=== PATIENT | male | born 1970 | race Caucasian/White ===

== ENCOUNTER 2021-12-08 10:42 | Outpatient (CLI) | payer OTHER, SELFPAY ==
[2021-12-08 21:38] LABS: Chloride* 104 mmol/L (96-114)
[2021-12-08 21:39] LABS: Potassium* 4.2 mmol/L (3.6-5.1); Sodium* 141 mmol/L (135-149)
[2021-12-08 21:41] LABS: Bilirubin Total* 0.4 mg/dL (0.1-1.5); Carbon Dioxide* 27 mmol/L (20-32); Creatinine* 0.9 mg/dL (0.5-1.5); Estimated Glomerular Filt Rate 102 ml/min
[2021-12-08 21:42] LABS: Alanine Aminotransferase* 46 U/L (4-50); Alkaline Phosphatase* 90 U/L (40-150); Aspartate Amino Transferase* 33 U/L (12-35); Blood Urea Nitrogen* 17 mg/dL (7-30); Calcium* 9.7 mg/dL (8.4-10.6); Glucose* 85 mg/dL (60-115); Total Protein* 7.6 g/dL (6.0-8.3)
== END 2021-12-08 10:43 | disposition home or self-care (01) ==
LOC: FRMREF 15:47
PROVIDERS: PCP Family Medicine; Visit Provider Dermatology
DX: Z79.899 Other long term (current) drug therapy (principal)
CPT/HCPCS: 80053

== ENCOUNTER 2022-03-10 15:15 | Outpatient (CLI) | payer OTHER, SELFPAY ==
[2022-03-10 21:30] LABS: Albumin* 4.8 g/dL (3.3-5.0); Chloride* 104 mmol/L (96-114)
[2022-03-10 21:31] LABS: Potassium* 4.7 mmol/L (3.6-5.1); Sodium* 139 mmol/L (135-149)
[2022-03-10 21:33] LABS: Aspartate Amino Transferase* 47 U/L (12-35); Bilirubin Total* 0.3 mg/dL (0.1-1.5); Carbon Dioxide* 28 mmol/L (20-32); Creatinine* 1.1 mg/dL (0.5-1.5); Estimated Glomerular Filt Rate 80 ml/min
[2022-03-10 21:34] LABS: Alanine Aminotransferase* 79 U/L (4-50); Alkaline Phosphatase* 81 U/L (40-150); Blood Urea Nitrogen* 18 mg/dL (7-30); Calcium* 9.2 mg/dL (8.4-10.6); Glucose* 88 mg/dL (60-115); Total Protein* 7.1 g/dL (6.0-8.3)
== END 2022-03-10 15:16 | disposition home or self-care (01) ==
PROVIDERS: PCP Family Medicine; Visit Provider Dermatology
DX: Z79.631 Long term (current) use of antimetabolite agent (principal)
CPT/HCPCS: 80053

== ENCOUNTER 2022-06-30 15:38 | Outpatient (CLI) | payer OTHER, SELFPAY | END 2022-06-30 15:39 | disposition home or self-care (01) | LOC: NFLDREF 07-08 11:40 | PROVIDERS: PCP Family Medicine; Referring Provider Family Medicine; Visit Provider Dermatology | DX: L30.8 Other specified dermatitis (principal); Z79.631 Long term (current) use of antimetabolite agent | CPT/HCPCS: 80053 ==

== ENCOUNTER 2024-02-22 17:55 | Emergency (ER) | payer OTHER, SELFPAY ==
[2024-02-22 17:58] VITALS: BP 163/92; PULSE 82; RESP 20; TEMP 36.6; O2SAT 97; BMI 21.9
--- NOTE | 2024-02-22 18:18 | ED_ITS ---
HPI - General Adult General Chief complaint: Shortness of Breath/Dyspnea Stated complaint: pneumonia Time Seen by Provider: 02/22/24 17:56 History of Present Illness HPI narrative: Patient has history of pneumonia and feels like it is coming back over the past couple days. Feels SOB, a little wheezy, and fatigued. States he has had a cough for a couple days. 53-year-old man presenting to the emergency department with concern of pneumonia. Underlying history of dermatitis and eczema and history of methotrexate. Been feeling particularly exertionally fatigued. Generally short of breath and wheezy. Does not endorse history of COPD or reactive airway. Does smoke 3 swishher sweets a day inhaling more than I should?. Feels like he gets a yearly pneumonia. Did not occur last year he reflects. No chest pain. No fever. Related Data Home Medications ?Medication ?Instructions ?Recorded ?Confirmed clobetasol 0.05 % topical cream topical 02/22/24 folic acid 1 mg tablet 1 mg PO DAILY 02/22/24 02/22/24 losartan 25 mg tablet 12.5 mg PO DAILY 02/22/24 02/22/24 Previous Rx's ?Medication ?Instructions ?Recorded methotrexate sodium 2.5 mg tablet 15 mg (6 x 2.5 mg) PO QWEEK #72 07/08/22 tabs Allergies Allergy/AdvReac Type Severity Reaction Status Date / Time No Known Drug Allergies Allergy Verified 07/08/22 14:26 Review of Systems Status of ROS: Reports: 6 or more systems reviewed and unremarkable except as noted in History and below [facility] Medical History Methotrexate, retirement, current use ?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 NAD. Gravelly voice. Oropharynx hyperemic. Neck supple without supraclavicular crepitus. Lungs with diffuse end-expiratory wheezing trace crepitus. Good air movement though. Heart in regular rate and rhythm. Dist ant. Is well-perfused peripherally. No edema. Const: Vital Signs, click to edit/add: Vital Signs - 24 hr 02/22/24 17:58 Temperature 97.9 F Pulse Rate [Pulse Oximeter] 82 Respiratory Rate 20 Blood Pressure [Ri ght Upper Arm] 163/92 H Pulse Oximetry 97 Oxygen Delivery Me thod Room Air Documenting provider has reviewed patient's vital signs: yes Course Vital Signs Vital signs: Initial Vital Signs Temperature 97.9 F 02/22/24 17:58 Temperature Source Temporal Artery Scan 02/22/24 17:58 Pulse Rate 82 02/22/24 17:58 Pulse Rhythm Regular 02/22/24 17:58 Respiratory Rate 20 02/22/24 17:58 Blood Pressure 163/92 H 02/22/24 17:58 Blood Pressure Mean 115 H 02/22/24 17:58 Blood Pressure Position Sitting 02/22/24 17:58 Pulse Oximetry 97 02/22/24 17:58 Oxygen Delivery Method Room Air 02/22/24 17:58 Vital Signs Temperature 97.9 F 02/22/24 17:58 Pulse Rate 82 02/22/24 17:58 Respiratory Rate 20 02/22/24 17:58 Blood Pressure 163/92 H 02/22/24 17:58 Pulse Oximetry 97 02/22/24 17:58 Oxygen Delivery Method Room Air 02/22/24 17:58 Temperature 97.9 F 02/22/24 17:58 Pulse Rate 82 02/22/24 17:58 Respiratory Rate 20 02/22/24 17:58 Blood Pressure 163/92 H 02/22/24 17:58 Pulse Oximetry 97 02/22/24 17:58 Oxygen Delivery Method Room Air 02/22/24 17:58 Medical Decision Making MDM Narrative Medical decision making narrative: Particularly in the setting of immunosuppression would 1 a say whether not there is pneumonia. Would check also for COVID influenza a considering community prevalence. Chest x-ray pending. Did discuss potential benefit of nebulization. Does not normally use an inhaler. At rest however is with minimal symptoms and vitals are WNL so decided to defer the nebulization. Chest x-ray reviewed by me seems to have some thickening of tissue at the right lower lung base. This is similar to prior. I do not clearly see any infiltrate otherwise. Looks to have a stable left lower lung nodule. Discussed all findings with Jaydon Delio. Radiology over-read below Indication: Cough, exertional dyspnea and wheeze Comparison: Two-view chest June 06, 2020 Technique: PA and lateral views of the chest Findings: There is hyperinflation and chronic interstitial change with demonstration of marked right lower lobe pleural thickening with parenchymal scar seen in the right lung base. There is mild interstitial prominence without dense consolidation, effusion or pneumothorax. The cardiomediastinal silhouette is within normal limits. The bony thorax is grossly intact. Impression: Hyperinflation and chronic interstitial change with developing right basilar pleural thickening and tenting of the right hemidiaphragm. I think more is experiencing some COPD exacerbation/bronchitis. He is concerned though about coming into the weekend and about having antibiotic available if not improving. See patient discharge plan for further discussion Medical Records Medical records reviewed: Yes I reviewed the patient's medical records Lab Data Lab results reviewed: Yes I reviewed the patient's lab results Labs: Lab Results 02/22/24 Range/Units 18:30 SARS-CoV-2 (PCR) Negative SARS-CoV-2 (Negative) Influenza Type A (PCR) Negative PCR FLU A (Negative) Influenza Type B (PCR) Negative PCR FLU B (Negative) RSV (PCR) Negative PCR RSV (Negative) Discharge Plan Discharge Clinical Impression: Bronchitis, Nicotine dependence Instructions: Acute Bronchitis (ED) Additional Instructions: ED appear to have some inflammation in your chest at a minimum. This could be multifactorial brought on by smoking or viral infection. Concerns also related due to methotrexate use that would make you more susceptible to infections. Prescribing prednisone and albuterol from [facility]. Also doxycycline as an antibiotic that you can start in a couple of days if you are not turning the corner. Do what you can to quit smoking. I would follow-up in primary care for re-evaluation of your lungs -- need pulmonary function testing and then possibly an inhaled steroid or similar long- term. Prescriptions: No Action methotrexate sodium 2.5 mg tablet 15 mg PO QWEEK Qty: 72 0RF Rx Instructions: Take 4 pills on Tuesday and 4 pills on Tuesday clobetasol 0.05 % cream topical losartan 25 mg tablet 12.5 mg PO DAILY folic acid 1 mg tablet 1 mg PO DAILY Follow Up/Referrals: Simon Whitfield MD [Primary Care Provider] - Stand Alone Forms: [employer] Info Instructions
--- NOTE | 2024-02-22 18:26 | CRLHL7_ITS ---
For Patients: As a result of the Century Cures Act, medical imaging exams and procedure reports are released immediately into your electronic medical record. You may view this report before your referring provider. If you have questions, please contact your health care provider. Indication: Cough, exertional dyspnea and wheeze Comparison: Two-view chest June 06, 2020 Technique: PA and lateral views of the chest Findings: There is hyperinflation and chronic interstitial change with demonstration of marked right lower lobe pleural thickening with parenchymal scar seen in the right lung base. There is mild interstitial prominence without dense consolidation, effusion or pneumothorax. The cardiomediastinal silhouette is within normal limits. The bony thorax is grossly intact. Impression: Hyperinflation and chronic interstitial change with developing right basilar pleural thickening and tenting of the right hemidiaphragm. Dictated by Desean Wlels MD @ 02/22/2024 6:48:41 PM (Electronically Signed)
[2024-02-22 19:14] LABS: PCR FLU A Negative PCR FLU A (Negative); PCR FLU B Negative PCR FLU B (Negative); PCR RSV Negative PCR RSV (Negative); SARS PCR* Negative SARS-CoV-2 (Negative)
== END 2024-02-22 19:49 | disposition home or self-care (01) ==
PROVIDERS: Emergency Provider Family Medicine; PCP Family Medicine
DX: J40 Bronchitis, not specified as acute or chronic (principal); F17.200 Nicotine dependence, unspecified, uncomplicated
CPT/HCPCS: 71046; 87631; 99283; 99284

== ENCOUNTER 2024-11-08 18:41 | Emergency (ER) | payer OTHER, SELFPAY ==
--- OUTSIDE RECORDS SUMMARY | 2024-11-08 18:42 | XMS_ITS | Clinical Summary ---
Author Organization [facility] Address [address] [place] [id number] Care Team Providers Care Associate Professor Of Biostatistics Name Role Phone Pcp, No Primary Care Provider Unavailabl e Allergies No known active allergies Medications methotrexate (RHEUMATREX) 2.5 mg tablet 03/30/2024 Active minoxidiL (LONITEN) 2.5 mg tab Take 2.5 mg by mouth once daily. 06/19/2024 Active folic acid 1 mg tablet Take 1 mg by mouth once daily. 03/08/2024 Active losartan (COZAAR) 25 mg tabletIndication s:HTN (hypertension) TAKE ONE-HALF TABLET BY MOUTH EVERY DAY 45 Tablet 2 07/02/2024 Active Active Problems Problem Noted Date Diagnosed Date Primary hypertension 06/25/2024 Other sleep apnea 06/25/2024 Sleep disorder 09/12/2023 Colon polyp 01/25/2023 Overview (01/25/2023): Colonoscopy 12/2022 SSA, repeat in 5 years Tobacco abuse 08/29/2013 Carbuncle and furuncle of unspecified site 12/01 Immunizations Immunization Administration Dates Next Due COVID-19 vaccine (Moderna 100mcg/0.5mL) EMRE DAUGHERTY 10/10/2021 Tdap 08/29/2013 Family History Medical History Relation Name Comments Heart Disease Brother Stents at 38 Heart Disease Father Rheumatic valv e disease Diabetes type II Mother Heart Disease Mother [place] in late 50' s Cancer-colon No Family History Cancer-prostate No Family History Relation Name Status Comments Brother Father Mother Social History Tobacco Use Types Packs/Day Years Used Date Smoking Tobacco: Every Day Cigarettes 1 35 Cigars Smokeless Tobacco: Never Tobacco Cessation:Ready to Q uit: No; Counseling Given: Yes Comments:Cigars everyday now Alcohol Use Standard Drinks/Week Comments Yes 0 (1 standard drink = 0.6 oz pure alcohol) socially - usually no more than 2 - heavy drinker 10 years ago PHQ-2 Answer Date Recorded PHQ-2 TOTAL SCORE 0 06/25/2024 Sex and Gender Information Value Date Recorded Sex Assigned at Not on file Legal Sex Male 7:08 AM RULING TECHNICIAN Gender Identity Not on file Sexual Orientation Not on file Obstetrics History Last Filed Vital Signs Vital Sign Reading Time Taken Comments Blood Pressure 132/87 06/25/2024 3:08 PM RULING TECHNICIAN Pulse 74 06/25/2024 3:08 PM RULING TECHNICIAN Temperature 37 C (98.6 F) 07/07/2015 4:16 PM RULING TECHNICIAN Respiratory Rate 12 01/19/2023 11:45 AM CDT Oxygen Saturation 99% 06/25/2024 3:08 PM RULING TECHNICIAN Inhaled Oxygen Concentration - - Weight 72.2 kg (159 lb 1.6 oz) 06/25/2024 3:08 P M RULING TECHNICIAN Height 182.9 cm (6') 06/25/2024 3:08 PM RULING TECHNICIAN Body Mass Index 21.58 06/25/2024 3:08 PM RULING TECHNICIAN Plan of Treatment Health Maintenance Due Date Last Done Comments Hepatitis B series for 19+ ( 1 of 3 - 19+ 3-dose series) 12/06/1987 Pneumococcal series for age 50+ (1 of 2 - PCV) 12/06/1987 Zoster (shingles) series for age 50+ (1 of 2) 12/06/1987 Tetanus booster 08/30/2023 08/29/2013 COVID-19 vaccine series ( season) 2024 10/10/2021, 03/31/2021, 09/04/2020, Additional history exists Influenza Vaccine (#1) 2024 BMI (ht and wt on same day) for age 18+ 06/25/2025 06/25/2024, 12/03/2022 Depression screening for age 12+ 06/25/2025 06/25/2024, 12/07/2022, 12/03/2022, Additional history exists Low Dose CT (for lung CA) ag e 50-80 06/29/2025 06/29/2024, 12/06/2022, 08/29/2013 Colonoscopy through age 75 01/20/202801/19, 01/19/2023, 01/19/2023 Lipids for age 45-75 06/25/2029 06/25/2024, 12/03/2022, 08/31/2013 HIV for age 15-65 Completed 12/03/2022 Hepatitis C screening for ag e 18-79 Completed 12/03/2022 Procedures Procedure Name Priority Date/Time Associated Diagnosis Comments CT CHEST SCREENING LOW DOSE WO CONTRAST Routine 06/29/2024 3:53 PM RULING TECHNICIAN Encounter for screening for lung cancer Smoker LIPID PANEL W REFLEX MEASURED LDL Routine 06/25/2024 4:16 PM RULING TECHNICIAN Annual physical exam COLONOSCOPY SCREENING Routine 01/19/2023 10:26 AM CDT Encounter for screening colonoscopy LC HIV-1/O/2, 4TH GENERATION Routine 12/03/2022 4:37 PM CDT Screening for HIV (human immunodeficiency virus) LC HCV ANTIBODY RFX TO QUANT PCR Routine 12/03/2022 4:37 PM CDT Need for hepatitis C screening test from Last 3 Months or Most Recently Relevant to Health Maintenance Results * CT CHEST SCREENING LOW DOSE WO CONTRAST (06/29/2024 3:53 PM RULING TECHNICIAN) Anatomical Region Laterality Modality Computed Tomogra phy Impressions 06/30/2024 9:56 AM RULING TECHNICIAN No lung nodules or masses. Lung rads category 1, negative. Continue annual screening with low-dose chest CT in 12 months. Please note that all CT scans at this facility use dose modulation, iterative reconstruction and/or weight-based dosing when appropriate to reduce radiation dose to as low as reasonably achievable. Dictated by: Juan Gu MD @06/29/2024 9:09:00 PM/maryjo Neuroradiologist Narrative 06/30/2024 9:56 AM RULING TECHNICIAN For Patients: As a result of the Century Cures Act, medical imaging exams and procedure reports are released immediately into your electronic medical record. You may view this report before your referring provider. If you have questions, please contact your health care provider. CT CHEST SCREENING LOW-DOSE WITHOUT CONTRAST 06/29/2024 INDICATION: Lung cancer screening. TECHNIQUE: Low-dose noncontrast CT images of the chest. Dose reduction techniques used. COMPARISON: CT chest 12/06/2022. FINDINGS: No focal consolidation, pleural effusion, or pneumothorax. Calcified granuloma LEFT lower lobe. No pulmonary nodules. Mild paraseptal emphysema in the lung apices. Heart size is normal. No pericardial effusion. Coronary atherosclerotic calcifications. No mediastinal or hilar lymphadenopathy. Calcified mediastinal lymph node. Limited images through the upper abdomen are unremarkable. Mild thoracic spondylosis. No aggressive osseous lesions. us Romielizabeth Byrnesmarciano DO CT Final Result * (ABNORMAL) LIPID PANEL W REFLEX MEASURED LDL (06/25/2024 4:16 PM RULING TECHNICIAN) [facility] CHOLESTEROL, TOTAL 199 <200 mg/dL [facility] HDL CHOLESTEROL 45 > OR = 40 mg/dL [facility] TRIGLYCERIDES 265(H) <150 mg/dL [facility] Comment: If a non-fasting specimen was collected, consider repeat triglyceride testing on a fasting specimen if clinically indicated. Evangelista et al. J. of Clin. Lipidol. 2015;9:129-169. LDL-CHOLESTEROL 116(H) mg/dL (calc) [facility] Comment: Reference range: <100 Desirable range <100 mg/dL for primary prevention; <70 mg/dL for patients with CHD or diabetic patients with > or = 2 CHD risk factors. LDL-C is now calculated using the Delio-Meseret calculation, which is a validated novel method providing better accuracy than the Friedewald equation in the estimation of LDL-C. Delio SS et al. CALOS. 2013;310(19): 2793-1979 (http://education.BagThat/faq/MUQ050) CHOL/HDLC RATIO 4.4 <5.0 (calc) [facility] NON HDL CHOLESTEROL 154(H) <130 mg/dL (calc) [facility] Comment: For patients with diabetes plus 1 major ASCVD risk factor, treating to a non-HDL-C goal of <100 mg/dL (LDL-C of <70 mg/dL) is considered a therapeutic option. Blood BLOOD SPECIMEN / Unknown 06/25/2024 4:16 PM RULING TECHNICIAN 06/25/2024 4:17 PM RULING TECHNICIAN Aislinn Burnett DO CHEMISTRY Final Result [facility] [address] [place] [address], [facility] [address] [place] [address] * COLONOSCOPY (01/19/2023 10:15 AM CDT) 01/19/2023 10:1 5 AM CDT Narrative Transcriptions Delio Hernandez MD - 01/19/2023 11:27 AM CDT Patient Name: Rashi Kebede Procedure Date: 01/19/2023 Gender: Male Date of : 1970 Admit Type: Outpatient Procedure: Colonoscopy Proceduralist: Delio Hernandez MD , Dawna York RN (Nurse), Mariam Goldsmith (Nurse) Referring MD: Aislinn Burnett Indications/Pre-Op Diagnosis: Screening for colorectal malignant neoplasm, This is the patient's first colonoscopy Medications: Fentanyl 100 micrograms IV, Midazolam 4 mgIV, The level of sedation administered wasmoderate Procedure Description: The patient had risks, benefits and alternatives explained to andgave informed consent. The patient had a stable cardiopulmonary status and judged an adequate candidate for conscious sedation. The endoscope [id number]-[id number] was passed through the anus andadvanced to the cecum, identified by appendiceal orifice and ileocecal valve.The colonoscopy was performed without difficulty. The patient toleratedthe procedure well. The quality of the bowel preparation was good. The ileocecal valve, appendiceal orifice, and rectum were photographed. Complications: No immediate complications. Estimated Blood Loss & Specimen: Estimated blood loss: none. Specimen collected - Yes and sent to Laboratory Findings: The perianal and digital rectal examinations were normal. Two sessile polyps were found in the ascending colon. The polyps were2 to 3 mm in size. These polyps were removed with a cold snare.Resection was complete, but the polyp tissue was only partially retrieved. The exam was otherwise without abnormality. Impressions/Post-Op Diagnosis: - Two 2 to 3 mm polyps in the ascending colon, removed with a cold snare. Complete resection. Partial retrieval. - The examination was otherwise normal. Recommendation: - Patient has a contact number available for emergencies. The signsand symptoms of potential delayed complications were discussed with the patient. Return to normal activities tomorrow. Written discharge instructions were provided to the patient. - Resume previous diet. - Continue present medications. - Await pathology results. - Repeat colonoscopy is recommended. The colonoscopy date will be determined after pathology results from today's exam become available for review. Moderate Sedation: A time out was performed before the procedure. Moderate (conscious) sedation was administered by the endoscopy nurse and supervised bythe endoscopist. The following parameters were monitored: oxygensaturation, heart rate, blood pressure, EKG, CO2, respiratory rate, adequacy of pulmonary ventilation and reponse to care. Please refer to the patient's medical record flowsheets and nursing notes for moderate sedation details. Total physician intraservice time was 15 minutes. Delio Hernandez MD 01/19/2023 11:27:19 AM This report has been signed electronically. Note Initiated On: 01/19/2023 10:15 AM Procedure Code(s): --- Professional --- 81143, Colonoscopy, flexible; with removalof tumor(s), polyp(s), or other lesion(s) bysnare technique Diagnosis Code(s): --- Professional --- Z12.11, Encounter for screening formalignant neoplasm of colon D12.2, Benign neoplasm of ascending colon CPT copyright 2021 [employer]. All rights reserved. The codes documented in this report are preliminary and upon cowlman reviewmay be revised to meet current compliance requirements. Scope In: 11:06:22 AM Scope Withdrawal Time 0 hours 10 minutes 55 seconds Scope Out: 11:19:38 AM Delio Hernandez MD PROCEDURE ORD Final Res ult * LC HCV ANTIBODY RFX TO QUANT PCR (12/03/2022 4:37 PM CDT) HCV Ab Non Reactive Non Reactive 12/07/2022 11:[address] [facility] ([facility]) Blood BLOOD SPECIMEN / Unknown Venipuncture / Unknown 12/03/2022 4:37 PM CDT 12/03/2022 4:39 PM CDT Narrative [facility] ([facility]) - 12/07/2022 11:06 PM CDT Performed at: [address] [place] [id number] Site Physician: See Lomeli MD, Phone: [phone] Aislinn Burnett DO LABORATORY Final Result [facility] ([facility]) [address] [place] [id number], * LC HIV-1/O/2, 4TH GENERATION (12/03/2022 4:37 PM CDT) HIV Scr 4th Gen Non Reactive Non Reactive 12/07/2022 11:06 PM CDT [facility] ([facility]) Comment: HIV Negative HIV-1/HIV-2 antibodies and HIV-1 p24 antigen were NOT detected. There is no laboratory evidence of HIV infection. Blood BLOOD SPECIMEN / Unknown Venipuncture / Unknown 12/03/2022 4:37 PM CDT 12/03/2022 4:39 PM CDT Narrative [facility] ([facility]) - 12/07/2022 11:06 PM CDT Performed at: [address] [place] [id number] Site Physician: See Lomeli MD, Phone: [phone] us Aislinn Burnett DO LABORATORY Final Result [facility]) [facility] [place] [address], from Last 3 Months or Most Recently Relevant to Health Maintenance Insurance [facility] [employer] Care Teams Associate Professor Of Biostatistics Relationship Specialty Start Date End Date Pcp, No . PCP - General 11/27/10
[2024-11-08 18:51] VITALS: BP 139/72; PULSE 67; RESP 16; TEMP 36.9; O2SAT 97; BMI 21.5
--- NOTE | 2024-11-08 18:59 | ED.MALEGU ---
HPI - Male Genitourinary General Time Seen by Provider: 18:59 Date Seen: 11/08/24 Chief complaint: Urogenital Problems, Male Stated complaint: something going on down there Time Seen by Provider: 11/08/24 18:59 Source: patient and RN notes reviewed Mode of arrival: ambulatory Limitations: no limitations History of Present Illness HPI Narrative: Rashi is a very pleasant 53-year-old male currently on long-term methotrexate for psoriasis who comes to the emergency room for evaluation regarding abdominal pain. Abdominal pain in the lower abdomen left lower quadrant started on Tuesday night November 06. Since that time he has had very poor p.o. intake due to lack of appetite. He has not had any vomiting or diarrhea and had a normal bowel movement yesterday. He has not noticed any blood in his bowel movement. He has not had fever or chills. He is rating the pain as 7 to 8/10 at this time. Sitting increases his pain. He denies any pain into the scrotum. It is not noticed any bulging into the scrotum or hernias in the abdomen. Movement seems to increase his discomfort. Related Data Home Medications ?Medication ?Instructions ?Recorded ?Confirmed clobetasol 0.05 % topical cream topical 02/22/24 folic acid 1 mg tablet 1 mg PO DAILY 02/22/24 11/08/24 losartan 25 mg tablet 12.5 mg PO DAILY 02/22/24 11/08/24 minoxidil 2.5 mg tablet mg PO 11/08/24 Previous Rx's ?Medication ?Instructions ?Recorded methotrexate sodium 2.5 mg tablet 15 mg (6 x 2.5 mg) PO QWEEK #72 07/08/22 tabs ciprofloxacin HCl 250 mg tablet 250 mg PO BID #14 tabs 11/08/24 (Cipro) tamsulosin 0.4 mg capsule (Flomax) 0.4 mg PO QHS #14 caps 11/08/24 Allergies Allergy/AdvReac Type Severity Reaction Status Date / Time No Known Drug Allergies Allergy Verified 11/08/24 18:57 Review of Systems Status of ROS: Reports: 10 or more systems reviewed and unremarkable except as noted in History and below Const: Denies: fever or chills ENMT: Denies: neck pain or nasal congestion Cardio: Denies: chest pain or shortness of breath with exertion Resp: Denies: shortness of breath or cough GI: Reports: abdominal pain and bloating (Slightly); Denies: nausea, vomiting, diarrhea, constipation or blood in stool : Denies: painful urination, urinary frequency or urinary urgency Musculo: Denies: back pain or neck pain PFSH [facility] Medical History Methotrexate, computer terminal operator, 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 He has some tears at rest is preferring to keep his eyes closed. External ears eyes nose clear. The smell of tobacco. Heart with a regular rate and rhythm and lungs are clear bilaterally. Abdomen is with positive bowel sounds. He has a exquisite tenderness in the left lower quadrant and suprapubic areas. I do not palpate any masses. No unusual hernias palpated. No pain with hitting of the heels or movement of the bed. Const: Vital Signs, click to edit/add: Vital Signs - 24 hr 11/08/24 18:51 11/08/24 20:23 11/08/24 20:30 Temperature 98.4 F Pulse Rate 80 79 Pulse Rate [Pulse Oximeter] 67 Respiratory Rate 16 Blood Pressure [Ri ght Upper Arm] 139/72 Pulse Oximetry 97 96 97 Oxygen Delivery Me thod Room Air Documenting provider has reviewed patient's vital signs: yes Course Course ED Course: Differential diagnosis includes but is not limited to diverticulitis, colitis, hernia, internal hernia, muscular strain, ureteral colic, UTI. Will place IV and give 1 L of saline, Toradol 15 mg IV. Have ordered CBC, comprehensive panel, so lactate, CRP, lipase as well as urinalysis and abdominal CT. Reevaluation(s) Reevaluation #1: Patient did have some relief with the Toradol. On CT it is noted that his bladder is markedly distended. A postvoid residual shows greater than 350. I do await the official radiological read at this time. Vital Signs Vital signs: Initial Vital Signs Temperature 98.4 F 11/08/24 18:51 Temperature Source Temporal Artery Scan 11/08/24 18:51 Pulse Rate 67 11/08/24 18:51 Respiratory Rate 16 11/08/24 18:51 Blood Pressure 139/72 11/08/24 18:51 Blood Pressure Mean 94 11/08/24 18:51 Blood Pressure Position Sitting 11/08/24 18:51 Pulse Oximetry 97 11/08/24 18:51 Oxygen Delivery Method Room Air 11/08/24 18:51 Vital Signs Temperature 98.4 F 11/08/24 18:51 Pulse Rate 67 11/08/24 18:51 Respiratory Rate 16 11/08/24 18:51 Blood Pressure 139/72 11/08/24 18:51 Pulse Oximetry 97 11/08/24 18:51 Oxygen Delivery Method Room Air 11/08/24 18:51 Temperature 98.4 F 11/08/24 18:51 Pulse Rate 79 11/08/24 20:30 Respiratory Rate 16 11/08/24 18:51 Blood Pressure 139/72 11/08/24 18:51 Pulse Oximetry 97 11/08/24 20:30 Oxygen Delivery Method Room Air 11/08/24 18:51 Medications Administered Medications: Generic Name Dose Route Start Last Admin Trade Name Freq PRN Reason Stop Dose Admin Lidocaine HCl 6 ml 11/08/24 20:59 11/08/24 21:08 Lidocaine Hcl 2 % Jelly (Top) Sterile UR 6 ml ONCE PRN Administration Discontinued Medications Generic Name Dose Route Start Last Admin Trade Name Freq PRN Reason Stop Dose Admin Sodium Chloride 1,000 mls @ 1,000 mls/hr 11/08/24 19:10 11/08/24 21:05 0.9 % Sodium Chloride 1000 Ml IV 11/08/24 20:09 Infused .Q1H MARY Infusion Ketorolac Tromethamine 15 mg 11/08/24 19:09 11/08/24 19:44 Ketorolac 15 Mg/Ml Inj IVP 11/08/24 19:10 15 mg ONCE ONE Administration MDM - Male Genitourinary MDM Narrative Medical decision making narrative: 1. Urinary retention-patient noted to have distended urinary bladder on CT. Twice we did a postvoid residual with values 350-400. I spoke with patient about the use of a catheter and once inserted he is feeling much improved and has had almost 600 out. Upon further reflection he does note that he has been experiencing more urination at night, has a definite sensation to go but then has only small output. Again he is much improved. Unfortunately will likely need to have the catheter in place for at least 10-14 days pending urology consult. Will have patient use Flomax 0.4 mg p.o. daily. First dose given tonight in the ED with subsequent prescription sent to his pharmacy. 2. Left-sided ureteral stone-4 mm. Fortunately not causing significant hydroureter or hydronephrosis. Because we have placed a catheter and stone is in the ureter I do feel that we should cover him with an antibiotic to prevent any a evidence of UTI. Urinalysis tonight showed only hematuria but do have a culture pending. Cipro 500 mg p.o. given in the ED. patient will continue on 250 mg p.o. b.i.d. as prophylaxis while the catheter is in place in the stone has not passed. Patient is instructed to increase fluids. Well Cipro does carry increase risk of tendinitis, I do feel that this is the appropriate class of medication for prevention of UTI. Again 1st dose given in the ED tonight with subsequent doses sent to the pharmacy. Also have prescribed Anacortes 5/3 25 1-2 tablets p.o. q.4 hours p.r.n. pain for pain not relieved by ibuprofen. This is given via our [facility] [facility] machine. Have advised for the use of stool softener if using Anacortes. Did say that they could try ibuprofen 1st. 3. Disposition-home at this time. Demonstration of switching from Fu bag to leg bag by our nurses. Did instruct Rashi to return for worsening symptoms and as needed. He is looking much improved after insertion of the catheter. Medical Records Attestation: I reviewed the patient's medical records. Lab Data Attestation: I reviewed the patient's lab results. Labs: Lab Results 11/08/24 11/08/24 Range/Units 19:09 19:15 WBC 9.76 (4.50-11.00) K/uL RBC 4.37 (4.30-5.90) m/uL Hgb 14.3 (13.5-17.5) gm/dL Hct 42.4 (37.0-53.0) % MCV 97 (80-100) fL MCH 33 (26-34) pg MCHC 34 (32-36) gm/dL RDW Coeff of Darron 13.0 (11.5-15.5) % Plt Count 325 (140-440) K/uL Neut % (Auto) 56.7 (42.0-72.0) % Lymph % (Auto) 31.7 (20-44) % [place] % (Auto) 8.9 (0.0-11.0) % Eos % (Auto) 2.0 (0.0-7.0) % Baso % (Auto) 0.6 (0.0-3.0) % Neut # (Auto) 5.53 (1.7-7.0) K/uL Lymph # (Auto) 3.09 H (0.90-2.90) K/uL [place] # (Auto) 0.90 (0.00-0.90) K/UL Eos # (Auto) 0.20 (0.00-0.50) K/uL Baso # (Auto) 0.06 (0.00-0.30) K/uL Abs Immat Gran (auto) 0.01 (0.00-0.30) K/uL Imm/Tot Granulo (auto) 0.1 % Sodium 136 (135-149) mmol/L Potassium 3.4 L (3.6-5.1) mmol/L Chloride 105 (96-114) mmol/L Carbon Dioxide 24 (20-32) mmol/L Anion Gap 7 (7-15) mEq/L BUN 9 (7-30) mg/dL Creatinine 0.8 (0.5-1.5) mg/dL Estimated Creat Clear 100.14 Estimated GFR 105 ml/min Glucose 103 (60-115) mg/dL Lactate 1.6 (0.5-1.9) mmol/L Calcium 9.2 (8.4-10.6) mg/dL Total Bilirubin 0.4 (0.1-1.5) mg/dL AST 25 (12-35) U/L ALT 22 (4-50) U/L Alkaline Phosphatase 64 (40-150) U/L C-Reactive Protein < 0.5 L (0.5-1.0) mg/dL Total Protein 6.7 (6.0-8.3) g/dL Albumin 4.4 (3.3-5.0) g/dL Lipase 51 (23-300) U/L Urine Color Yellow (Yellow) Urine Appearance Clear (Clear) Urine pH 6.5 (5.0-8.5) Ur Specific [place] 1.010 (1.000-1.030) Urine Protein Negative (Negative) Urine Glucose (UA) Negative (Negative) Urine Ketones Negative (Negative) Urine Blood 3+ A (Negative) Urine Nitrite Negative (Negative) Urine Bilirubin Negative (Negative) Urine Urobilinogen 0.2 (0.2-1.0) Ur Leukocyte Esterase Negative (Negative) Urine RBC 10-25 A (0-2) Urine WBC 0-2 (0-5) Ur Squamous Epith Cells None (None-Few) Urine Bacteria None (None) Imaging Data CT scan - abdomen: Attestation: I have reviewed the pertinent imaging results. My impression: Kidney stone noted on the left. Large distended bladder by my read. Radiologist's impression: Lower chest: Left lower lobe calcified granuloma. Liver: Unremarkable. Normal in size and attenuation. No suspicious masses. Gallbladder and bile ducts: Unremarkable. No stones or inflammation. No biliary dilatation. Pancreas: Unremarkable. No mass or inflammation. Spleen: Unremarkable. Normal in size. No masses. Adrenal glands: Unremarkable. No nodules. Kidneys: 4 mm stone within the left distal ureter without significant associated proximal hydroureteronephrosis. Small exophytic cyst arising from the right kidney. GI tract: Unremarkable. Normal in caliber. No sign of mass or inflammation. Normal appendix. Vasculature: Normal caliber abdominal aorta with mild atherosclerotic calcification. Mesenteric arteries are patent. Lymph nodes: No lymphadenopathy. Peritoneum/Abdominal Wall: Unremarkable. No free air or significant free fluid. Pelvis: Mild prostatomegaly. Distended bladder. Bones: Unremarkable for age. IMPRESSION: 1. 4 mm stone within the left distal ureter without significant associated proximal hydroureteronephrosis. 2. No other acute findings within the abdomen and pelvis. Discharge Plan Discharge Clinical Impression: Calculus, ureteral, Urinary retention Patient Disposition: Home, Self-Care Condition: Improved Additional Instructions: 1. Please contact the [facility] and let your primary know that you had a have a catheter inserted for urinary retention and that you have 4 mm stone in your left ureter. You will need to see Urology. 2. Will start you on Flomax which is a soft muscle relaxer in the hopes that this will help expedite passage of the kidney stone. First dose is given in the emergency room. Further doses are available at her pharmacy. 3. Will start you on Cipro as you have a kidney stone as well as urinary retention and are at increased risk of developing a UTI. First dose of this medication is given the emergency room tonight with further doses sent to your pharmacy. 4. For pain you may use ibuprofen 400 mg every 8 hours if needed. If this does not help you may use Anacortes also known as Vicodin or hydrocodone/Tylenol. This is a narcotic pain medication and should not be taken with alcohol, any sedating medications or used if driving or operating heavy machinery. Would recommend the use of a stool softener if you are using Anacortes as it does have a tendency to cause constipation. This medicine is sent to our [employer] machine. Return to the emergency room for fever, worsening pain, onset of new symptoms and as needed. Prescriptions: New tamsulosin [Flomax] 0.4 mg capsule 0.4 mg PO QHS Qty: 14 2RF ciprofloxacin HCl [Cipro] 250 mg tablet 250 mg PO BID Qty: 14 0RF No Action methotrexate sodium 2.5 mg tablet 15 mg PO QWEEK Qty: 72 0RF Rx Instructions: Take 4 pills on Tuesday and 4 pills on Tuesday clobetasol 0.05 % cream topical losartan 25 mg tablet 12.5 mg PO DAILY folic acid 1 mg tablet 1 mg PO DAILY minoxidil 2.5 mg tablet PO Follow Up/Referrals: Simon Whitfield MD [Primary Care Provider, Family Practice] Stand Alone Forms: [id number] Info Instructions
--- NOTE | 2024-11-08 19:09 | CRLHL7_ITS ---
For Patients: As a result of the Century Cures Act, medical imaging exams and procedure reports are released immediately into your electronic medical record. You may view this report before your referring provider. If you have questions, please contact your health care provider. INDICATION: LEFT LOWER QUADRANT PAIN SINCE TUESDAY, HISTORY OF CONSTIPATION. TECHNIQUE: CT abdomen and pelvis acquired with 74 cc of Isovue 370 IV contrast. COMPARISON: None. FINDINGS: Lower chest: Left lower lobe calcified granuloma. Liver: Unremarkable. Normal in size and attenuation. No suspicious masses. Gallbladder and bile ducts: Unremarkable. No stones or inflammation. No biliary dilatation. Pancreas: Unremarkable. No mass or inflammation. Spleen: Unremarkable. Normal in size. No masses. Adrenal glands: Unremarkable. No nodules. Kidneys: 4 mm stone within the left distal ureter without significant associated proximal hydroureteronephrosis. Small exophytic cyst arising from the right kidney. GI tract: Unremarkable. Normal in caliber. No sign of mass or inflammation. Normal appendix. Vasculature: Normal caliber abdominal aorta with mild atherosclerotic calcification. Mesenteric arteries are patent. Lymph nodes: No lymphadenopathy. Peritoneum/Abdominal Wall: Unremarkable. No free air or significant free fluid. Pelvis: Mild prostatomegaly. Distended bladder. Bones: Unremarkable for age. IMPRESSION: 1. 4 mm stone within the left distal ureter without significant associated proximal hydroureteronephrosis. 2. No other acute findings within the abdomen and pelvis. Please note that all CT scans at this facility use dose modulation, iterative reconstruction, and/or weight-based dosing when appropriate to reduce radiation dose to as low as reasonably achievable. Dictated by Kane Cortez MD @ 11/08/2024 8:21:02 PM (Electronically Signed)
[2024-11-08 19:35] LABS: Lactate* 1.6 mmol/L (0.5-1.9)
[2024-11-08 19:36] LABS: Hematocrit 42.4 % (37.0-53.0); Hemoglobin* 14.3 gm/dL (13.5-17.5); Immature Granulocytes Abs Auto 0.01 K/uL (0.00-0.30); Immature Granulocytes Pct Auto 0.1 %; Lymphocytes Absolute Auto 3.09 K/uL (0.90-2.90); Mean Corpuscular HGB Conc 34 gm/dL (32-36); Mean Corpuscular Hemoglobin 33 pg (26-34); Mean Corpuscular Volume 97 fL (80-100); RDW Coefficient of Variation % 13.0 % (11.5-15.5); Red Blood Count 4.37 m/uL (4.30-5.90); Slide Review Reflex No; White Blood Count* 9.76 K/uL (4.50-11.00)
[2024-11-08 19:46] LABS: Appearance Urine Clear (Clear)
[2024-11-08 19:53] LABS: Albumin* 4.4 g/dL (3.3-5.0); Chloride* 105 mmol/L (96-114)
[2024-11-08 19:54] LABS: Potassium* 3.4 mmol/L (3.6-5.1); Sodium* 136 mmol/L (135-149)
[2024-11-08 19:56] LABS: Alanine Aminotransferase* 22 U/L (4-50); Aspartate Amino Transferase* 25 U/L (12-35); Blood Urea Nitrogen* 9 mg/dL (7-30); Creatinine* 0.8 mg/dL (0.5-1.5); Est. Creatinine Clearance* 100.14; Estimated Glomerular Filt Rate 105 ml/min
[2024-11-08 19:57] LABS: Alkaline Phosphatase* 64 U/L (40-150); Anion Gap 7 mEq/L (7-15); Bilirubin Total* 0.4 mg/dL (0.1-1.5); Calcium* 9.2 mg/dL (8.4-10.6); Carbon Dioxide* 24 mmol/L (20-32); Glucose* 103 mg/dL (60-115); Total Protein* 6.7 g/dL (6.0-8.3)
[2024-11-08 20:23] VITALS: PULSE 80; O2SAT 96
[2024-11-08 20:30] VITALS: PULSE 79; O2SAT 97
[2024-11-08] MEDS: lidocaine HCL 2 % JELLY (TOP) STERILE 6 ML UR (21:08)
[2024-11-08] MEDS: CIPROFLOXACIN 500 MG TABLET PO (21:43)
[2024-11-08] MEDS: TAMSULOSIN HCL 0.4 MG CAPSULE PO (21:43)
== END 2024-11-08 21:55 | disposition home or self-care (01) ==
PROVIDERS: Emergency Provider Family Medicine; PCP Family Medicine
DX: N20.1 Calculus of ureter (principal); R33.9 Retention of urine, unspecified
CPT/HCPCS: 51702; 36415; 51798; 74177; 80053; 81001; 83605; 83690; 85025; 86140; 96361; 96374; 99284; 99285; A9270; J1885; J7030; Q9967

== ENCOUNTER 2024-11-14 05:45 | Emergency (ER) | payer OTHER, SELFPAY ==
[2024-11-14 05:49] VITALS: BP 147/84; PULSE 82; RESP 16; TEMP 36.4; O2SAT 97; BMI 20.9
--- NOTE | 2024-11-14 05:52 | ED.MALEGU ---
HPI - Male Genitourinary General Time Seen by Provider: 05:52 Date Seen: 11/14/24 Chief complaint: Urogenital Problems, Male Stated complaint: blood in urine Time Seen by Provider: 11/14/24 05:52 Source: patient, RN notes reviewed and old records reviewed Mode of arrival: ambulatory Limitations: no limitations History of Present Illness HPI Narrative: 53-year-old male who presents today with hematuria. Patient was seen in the emergency department on November 08 with a ureteral stone in urinary retention. Presents today with blood in his catheter bag. Catheter still draining, pain is well controlled, no n/v. Mild LLQ pain. No flank pain. No fever/chills. Related Data Home Medications ?Medication ?Instructions ?Recorded ?Confirmed clobetasol 0.05 % topical cream topical 02/22/24 folic acid 1 mg tablet 1 mg PO DAILY 02/22/24 11/08/24 losartan 25 mg tablet 12.5 mg PO DAILY 02/22/24 11/08/24 minoxidil 2.5 mg tablet mg PO 11/08/24 Previous Rx's ?Medication ?Instructions ?Recorded methotrexate sodium 2.5 mg tablet 15 mg (6 x 2.5 mg) PO QWEEK #72 07/08/22 tabs ciprofloxacin HCl 250 mg tablet 250 mg PO BID #14 tabs 11/08/24 (Cipro) tamsulosin 0.4 mg capsule (Flomax) 0.4 mg PO QHS #14 caps 11/08/24 Allergies Allergy/AdvReac Type Severity Reaction Status Date / Time No Known Drug Allergies Allergy Verified 11/14/24 05:54 [facility] Medical History Methotrexate, fpc, current use ?Z79.631 - [facility] (current) use of antimetabolite agent (ICD-10) Social History Smoking Status: Never smoker Do you use any of these nicotine containing products: None How often do you have a drink containing alcohol: never AUDIT-C Alcohol total score: 0 Non-prescribed substance use: denies use service: No Exam Narrative: Exam Narrative: General: well nourished , NAD Head: Atraumatic and normocephalic ENT: External ears and external nose are normal Eyes: Conjunctiva clear, pupils are equal reactive, external ocular motions are intact Neck: Full spontaneous range of motion of the neck Lungs: No respiratory distress Musculoskeletal: No tenderness or deformity Neurologic: No gross focal neurologic deficits Skin: No rashes Psych: Mood and affect are appropriate Abd: Soft, nontender, nondistended Const: Vital Signs, click to edit/add: Vital Signs - 24 hr 11/14/24 05:49 Temperature 97.6 F Pulse Rate [Pulse Oximeter] 82 Respiratory Rate 16 Blood Pressure [Ri t Upper Arm] 147/84 H Pulse Oximetry 97 Oxygen Delivery Me thod Room Air Course Course ED Course: Reviewed most recent visit from November 08 when patient was seen with a ureteral stone and microscopic hematuria, that time CT scan demonstrated a 4 mm distal ureteral stone with hydronephrosis. Patient reports blood in catheter bag overnight. No increased pain, no fever, no chills. [place] Vu-aid colored blood in bag. Will irrigate and plan for discharge. Vital Signs Vital signs: Initial Vital Signs Temperature 97.6 F 11/14/24 05:49 Temperature Source Temporal Artery Scan 11/14/24 05:49 Pulse Rate 82 11/14/24 05:49 Respiratory Rate 16 11/14/24 05:49 Blood Pressure 147/84 H 11/14/24 05:49 Blood Pressure Mean 105 11/14/24 05:49 Blood Pressure Position Semi-Fowlers 11/14/24 05:49 Pulse Oximetry 97 11/14/24 05:49 Oxygen Delivery Method Room Air 11/14/24 05:49 Vital Signs Temperature 97.6 F 11/14/24 05:49 Pulse Rate 82 11/14/24 05:49 Respiratory Rate 16 11/14/24 05:49 Blood Pressure 147/84 H 11/14/24 05:49 Pulse Oximetry 97 11/14/24 05:49 Oxygen Delivery Method Room Air 11/14/24 05:49 Temperature 97.6 F 11/14/24 05:49 Pulse Rate 82 11/14/24 05:49 Respiratory Rate 16 11/14/24 05:49 Blood Pressure 147/84 H 11/14/24 05:49 Pulse Oximetry 97 11/14/24 05:49 Oxygen Delivery Method Room Air 11/14/24 05:49 Discharge Plan Discharge Clinical Impression: Calculus, ureteral, Gross hematuria Patient Disposition: Home, Self-Care Condition: Stable Instructions: Hematuria (ED) Additional Instructions: Follow-up with urology as scheduled. You may continue to have some blood in the urine. As long as this remains light red in color not dark maroon, you do not need to follow-up. If the catheter is not flowing, return to the emergency department. Activity Level: Activity as Tolerated Discharge Diet: Regular Prescriptions: No Action methotrexate sodium 2.5 mg tablet 15 mg PO QWEEK Qty: 72 0RF Rx Instructions: Take 4 pills on Tuesday and 4 pills on Tuesday clobetasol 0.05 % cream topical losartan 25 mg tablet 12.5 mg PO DAILY folic acid 1 mg tablet 1 mg PO DAILY minoxidil 2.5 mg tablet PO tamsulosin [Flomax] 0.4 mg capsule 0.4 mg PO QHS Qty: 14 2RF ciprofloxacin HCl [Cipro] 250 mg tablet 250 mg PO BID Qty: 14 0RF Follow Up/Referrals: Simon Whitfield MD [Primary Care Provider, Family Practice] Stand Alone Forms: [employer] Info Instructions
--- OUTSIDE RECORDS SUMMARY | 2024-11-14 06:37 | XMS_ITS | Clinical Summary ---
[facility] Organization [facility] Address [address] [place] [id number] Care Team Providers Care Jewel Bearing Broacher Name Role Phone Pcp, No Primary Care [...] Carbuncle and furuncle of unspecified site 12/01 Encounters Date Type Department Care Team Description 11/09/[address] [address] Pcp, No Questions (APPT); Error-please disregard 11/08/2024 Orders Only [facility] Scanner 1 scan: (1-Ord) CLAUDIA ABD PELVIS W, 11/08/2024 11/08/2024 Orders Only [facility] Scanner 1 scan: (1-Ord) GUILLERMO TAYLOR LAB RESULT, 11/08/2024 from Last 3 Months Immunizations Immunization Administration Dates Next Due COVID-19 vaccine (Moderna 100mcg/0.5mL) EMRE DAUGHERTY 10/10/2021 Tdap 08/29/2013 Family History Medical History Relation Name Comments Heart Disease Brother Stents at 38 Heart Disease Father Rheumatic valv e disease Diabetes type II Mother Heart Disease Mother [place] in late 50' s Cancer-colon No Family [...] on file Legal Sex Male 7:08 AM [employer] Gender Identity Not on file Sexual Orientation Not on file Obstetrics History Last Filed Vital Signs Vital Sign Reading Time Taken Comments Blood Pressure 132/87 06/25/2024 3:08 PM [employer] Pulse 74 06/25/2024 3:08 PM [employer] Temperature 37 C (98.6 F) 07/07/2015 4:16 PM [employer] Respiratory Rate 12 01/19/2023 11:45 AM CDT Oxygen Saturation 99% 06/25/2024 3:08 PM [employer] Inhaled Oxygen Concentration - - Weight 72.2 kg (159 lb 1.6 oz) 06/25/2024 3:08 P M [employer] Height 182.9 cm (6') 06/25/2024 3:08 PM [employer] Body Mass Index 21.58 06/25/2024 3:08 PM [employer] Plan of Treatment Upcoming Encounters Date Type Department Care Team (Late st Contact Info) Description 11/16/2024 9:00 AM CDT Office Visit [facility] [address] [place] [address] Antonette Hair PA [address] [place] [address] Health Maintenance Due Date Last Done Comments [...] Procedure Name Priority Date/Time Associated Diagnosis Comments SCAN-LABORATORY REPORT 11/08/2024 12:00 AM CDT SCAN-CT INTERPRETATION 11/08/2024 12:[address] CHEST SCREENING LOW DOSE WO CONTRAST Routine 06/29/2024 3:53 PM [employer] Encounter for screening for lung cancer Smoker LIPID PANEL W REFLEX MEASURED LDL Routine 06/25/2024 4:16 PM [employer] Annual physical exam COLONOSCOPY SCREENING Routine 01/19/2023 10:26 AM CDT Encounter for screening colonoscopy LC HIV-1/O/2, 4TH GENERATION Routine 12/03/2022 4:37 PM CDT Screening for HIV (human immunodeficiency virus) LC HCV ANTIBODY RFX TO QUANT PCR Routine 12/03/2022 4:37 PM CDT Need for hepatitis C screening test from Last 3 Months or Most Recently Relevant to Health Maintenance Results * SCAN-LABORATORY REPORT (11/08/2024 12:00 AM CDT) us Scanner OTHER Final Result * SCAN-CT INTERPRETATION (11/08/2024 12:00 AM CDT) Anatomical Region Laterality Modality Other us Scanner OTHER Final Result * CT CHEST SCREENING LOW DOSE WO CONTRAST (06/29/2024 3:53 PM [employer]) Anatomical Region Laterality Modality Computed Tomogra phy Impressions 06/30/2024 9:56 AM [employer] No lung nodules or masses. Lung rads category 1, negative. Continue annual screening with low-dose chest CT in 12 months. Please note that all CT scans at this facility use dose modulation, iterative reconstruction and/or weight-based dosing when appropriate to reduce radiation dose to as low as reasonably achievable. Dictated by: Juan Gu MD @06/29/2024 9:09:00 PM/maryjo Neuroradiologist Narrative 06/30/2024 9:56 AM [employer] For Patients: As a result of the [...] Mild thoracic spondylosis. No aggressive osseous lesions. Aislinn Burnett DO CT Final Result * (ABNORMAL) LIPID PANEL W REFLEX MEASURED LDL (06/25/2024 4:16 PM [employer]) CHOLESTEROL, TOTAL 199 <200 mg/dL [facility] HDL CHOLESTEROL 45 > OR = 40 mg/dL [facility] TRIGLYCERIDES 265(H) <150 mg/dL [facility] Comment: If a non-fasting specimen was collected, consider repeat triglyceride testing on a fasting specimen if clinically indicated. Evangelista et al. J. of Clin. Lipidol. 2015;9:129-169. LDL-CHOLESTEROL 116(H) mg/dL (calc) [facility] Comment: Reference range: <100 Desirable range <100 mg/dL for primary prevention; <70 mg/dL for patients with CHD or diabetic patients with > or = 2 CHD risk factors. LDL-C is now calculated using the Delio-Carl calculation, which is a validated novel method providing better accuracy than the Friedewald equation in the estimation of LDL-C. Delio SS et al. CALOS. 2013;310(19): 8428-0442 (http://education.[employer]/faq/POT061) CHOL/HDLC RATIO 4.4 <5.0 (calc) [facility] NON HDL CHOLESTEROL 154(H) <130 mg/dL (calc) [facility] Comment: For patients with diabetes plus 1 major ASCVD risk factor, treating to a non-HDL-C goal of <100 mg/dL (LDL-C of <70 mg/dL) is considered a therapeutic option. Blood BLOOD SPECIMEN / Unknown 06/25/2024 4:16 PM [employer] 06/25/2024 4:17 PM [employer] us Aislinn Burnett DO CHEMISTRY Final Result [employer] [facility] [address] [place] [address], [facility] [address] [place] [address] * COLONOSCOPY (01/19/2023 10:15 AM CDT) 01/19/2023 [...] candidate for conscious sedation. The endoscope [id number] was passed through the anus andadvanced to [...] 10:15 AM Procedure Code(s): --- Professional --- 85143, Colonoscopy, flexible; with removalof tumor(s), polyp(s), or other lesion(s) bysnare technique Diagnosis Code(s): --- Professional --- Z12.11, Encounter for screening formalignant neoplasm of colon D12.2, Benign neoplasm of ascending colon CPT copyright 2021 [employer]. All rights reserved. The codes documented in this report are preliminary and upon national business director reviewmay be revised to meet current compliance requirements. Scope In: 11:06:22 AM Scope Withdrawal Time 0 hours 10 minutes 55 seconds Scope Out: 11:19:38 AM Delio Hernandez MD PROCEDURE ORD Final Res ult * LC HCV ANTIBODY RFX TO QUANT PCR (12/03/2022 4:37 PM CDT) HCV Ab Non Reactive Non Reactive 12/07/2022 11:06 PM CDT [facility] ([facility]) Blood BLOOD SPECIMEN / Unknown Venipuncture / Unknown 12/03/2022 4:37 PM CDT 12/03/2022 4:39 PM CDT Narrative [facility] ([facility]) - 12/07/2022 11:06 PM CDT Performed at: [address] [place] [id number] Shirt Turner: See Lomeli MD, Phone: [phone] Aislinn Burnett DO LABORATORY Final Result [facility] ([facility]) [address] [place] [address], * LC HIV-1/O/2, 4TH GENERATION (12/03/2022 4:37 PM CDT) Pathologist [facility] HIV Scr 4th Gen Non Reactive Non Reactive 12/07/2022 11:06 PM CDT [facility] ([facility]) Comment: HIV Negative HIV-1/HIV-2 antibodies and HIV-1 p24 antigen were NOT detected. There is no laboratory evidence of HIV infection. Blood BLOOD SPECIMEN / Unknown Venipuncture / Unknown 12/03/2022 4:37 PM CDT 12/03/2022 4:39 PM CDT Narrative [facility] ([facility] - 12/07/2022 11:06 PM CDT Performed at: [address] [place], [place] [address] [place] [id number] Shirt Turner: See Lomeli MD, Phone: [phone] us Aislinn Burnett DO LABORATORY Final Result [facility] ([facility]) [address] [place] [address], from Last 3 Months or Most Recently Relevant to Health Maintenance Insurance [facility] [place] [address] Care Teams Jewel Bearing Broacher Relationship Specialty Start Date End Date Pcp, No . PCP - General 11/27/10
== END 2024-11-14 06:43 | disposition home or self-care (01) ==
LOC: ED 06:35
PROVIDERS: Emergency Provider Family Medicine; PCP Family Medicine
DX: N20.1 Calculus of ureter (principal); R31.0 Gross hematuria
CPT/HCPCS: 99282; 99283